=== PATIENT | female | born 1995 | race Caucasian/White ===

== ENCOUNTER 2016-07-28 05:26 | Emergency (ER) | payer OTHER ==
[2016-07-28 05:35] VITALS: BP 120/77; PULSE 103; RESP 16; TEMP 98.8; O2SAT 93
--- NOTE | 2016-07-28 05:58 | EDPHY ---
H & P Stated Complaint: c/o sorethroat/flu sx x 2 days HPI/ROS: HPI CHIEF COMPLAINT: Sore throat HISTORY OF PRESENT ILLNESS: The patient very pleasant 20-year-old female presents emergency room with sore throat worsening over the last 48 hours. She tells me that her roommate was diagnosed with influenza and on Tuesday she began to feel ill with muscle aches, joint pain and fever. She went to [facility] and was presumptively diagnosed with flu given her roommate had this. She then developed a sore throat approximately 48 hours ago she went back to [facility] and had a rapid strep test done and this was negative. She was sent home. She has been since having intermittent fevers taking Tylenol Motrin keep her fever down and nausea medicine. She can emergency room tonight as she is having ongoing throat pain. Hurts when she swallows however has no trouble swallowing no change in phonation no vomiting. No chest pain or productive cough. Past Medical History: No significant medical history Past Surgical History: No significant surgical history Social History: [employer] student, denies use of drugs alcohol tobacco products Family History: Noncontributory ROS REVIEW OF SYSTEMS: A comprehensive 10 point review of systems is otherwise negative aside from elements mentioned in the history of present illness. Exam Constitutional appears well nontoxic, triage nursing summary reviewed, vital signs reviewed, awake/alert. Eyes normal conjunctivae and sclera, EOMI, PERRLA. HENT TMs are clear bilaterally, posterior pharynx erythematous 2+ tonsillar bed bilaterally equal, exudate present, uvula midline, no signs of DYNAMIC [employer]ANCER, moist mucus membranes, no epistaxis, neck supple/ no meningismus, no raccoon eyes. Respiratory clear to auscultation bilaterally, normal breath sounds, no respiratory distress, no wheezing. Cardiovascular rate normal, regular rhythm, no murmur, no edema, distal pulses normal. Gastrointestinal soft, non-tender, no rebound, no guarding, normal bowel sounds, no distension, no pulsatile mass. Genitourinary no CVA tenderness. Musculoskeletal no midline vertebral tenderness, full range of motion, no calf swelling, no tenderness of extremities, no meningismus, good pulses, neurovascularly intact. Skin pink, warm, & dry, no rash, skin atraumatic. Neurologic awake, alert and oriented x 3, AAOx3, moves all 4 extremities equally, motor intact, sensory intact, CN II-XII intact, normal cerebellar, normal vision, normal speech. Psychiatric normal mood/affect. Heme/Lymph/Immune no lymphadenopathy. Differential Diagnosis: Includes but is not limited to strep pharyngitis, viral pharyngitis, mono, upper respiratory tract infection, influenza Medical Decision Making: Plan for this patient is to have a rapid strep test however given has swollen her tonsils are in the exudate I will treat empirically for strep pharyngitis. Rapid strep test will be sent. amoxicillin 1st dose given here in the emergency room if she is allergic to azithromycin, also 8 mg of Decadron given. She will be given a prescription for Decadron 4 mg the next 3 days, amoxicillin for 10 days. She understands to return to the ER she develops worsening symptoms includes worsening pain high fever vomiting questions or concerns she should also follow up with [facility] Nose and Throat. Source: Patient - Medical/Surgical History Hx Asthma: No Hx Chronic Respiratory Disease: No Hx Diabetes: No Hx Cardiac Disease: No Hx Renal Disease: No Hx Cirrhosis: No Hx Alcoholism: No Hx HIV/AIDS: No Hx Splenectomy or Spleen Trauma: No Other PMH: none - Social History Smoking Status: Never smoked Constitutional: Initial Vital Signs Temperature (C) 37.1 C 07/28/16 05:31 Heart Rate 103 H 07/28/16 05:31 Respiratory Rate 16 07/28/16 05:31 Blood Pressure 120/77 07/28/16 05:31 O2 Sat (%) 93 07/28/16 05:31 O2 Delivery Mode Room Air Allergies/Adverse Reactions: azithromycin Allergy (Verified 07/28/16 05:35) Home Medications: Medication Instructions Recorded Amoxicillin 500 mg PO TID 10 Days 07/28/16 Control 07/28/16 Dexamethasone [Decadron 4 MG (*)] 4 mg PO DAILY #4 tab 07/28/16 IBUPROFEN 07/28/16 Ibuprofen [Motrin (*)] 800 mg PO Q6-8PRN #7 tab 07/28/16 Tylenol 07/28/16 Departure - Departure Disposition: Home, Routine, Self-Care Clinical Impression: Acute pharyngitis Qualifiers: Pharyngitis/tonsillitis etiology: unspecified etiology Qualified Code(s): J02.9 - Acute pharyngitis, unspecified Condition: Good Instructions: Pharyngitis (ED) Additional Instructions: 1. Drink lots of fluids stay well-hydrated 2. Keep your fever down with Tylenol and Motrin. 3.Return to the emergency room if you develop any worsening symptoms questions or concerns. 4.Please follow up with Ear Nose and Throat. 5.Take antibiotics as prescribed. Referrals: MARLIN PINEDA [Other] - As per Instructions Miles Momin MD [Medical Doctor] - As per Instructions Prescriptions: Amoxicillin 500 mg PO TID 10 Days Dexamethasone [Decadron 4 MG (*)] 4 mg PO DAILY #4 tab Ibuprofen [Motrin (*)] 800 mg PO Q6-8PRN #7 tab
[2016-07-28] MEDS ORDERED: DEXAMETHASONE 4 MG TAB PO ONE (06:06)
== END 2016-07-28 06:46 | disposition home or self-care (01) ==
DX: J02.9 Acute pharyngitis, unspecified (principal)